=== PATIENT | female | born 1970 | race Caucasian/White ===

== ENCOUNTER 2019-07-08 06:02 | Emergency (ER) | payer OTHER ==
[~2019-07-08] VITALS: Ht 165.1 cm; Wt 82.1 kg
--- OUTSIDE RECORDS SUMMARY | 2019-07-08 06:04 | XMS REPORT ---
Author Author [facility] Address Unknown Phone Unavailable Care Team Providers Care Senior Data Quality Analyst Name Role Phone Unavailable Unavailable Payers Payer Name Policy Type Policy Number Effective Date Expiration Date Problems This patient has no known problems. Allergies, Adverse Reactions, Alerts Allergy Name Allergy Type Status Severity Reaction(s) Onset Date Inactive Date Treating Clinician Comments SHRIMP DA Active [place] 2012-10-21 00:00:00 Medications This patient has no known medications. Results Test Description Test Time Test Comments Text Results Atomic Results Result Comments - XR IVP W OR W/O OLE 2019-04-11 09:20:00 FAX: Aly Catherine DO [phone] Cook: St: [facility] FAX: Asim Rondon Jr [phone] Name: PATO PURI [facility] : 1970 Age/S: 48/F [address] [place] [address] Unit #: [id number] Loc: [place] [address] Phys: Asim Severino Jr, MD Acct: [id number] Dis Date: Status: REG CLI PHONE #: [phone] Exam Date: 04/11/2019 09 FAX #: [phone] Reason: UNSPEC URINARY INCONTINENCE EXAMS: CPT CODE: [id number] XR IVP W OR W/O OLE 77819 CLINICAL HISTORY: Urinary incontinence. COMPARISON: Computed tomography performed on November 01, 2012. Preliminary creative recruiter film of the abdomen demonstrates no evidence of small or large bowel obstruction. Surgical clips are present in the pelvis. Calcific densities in pelvis thought to represent phleboliths are identified. Following injection of contrast material, there is prompt visualization of both kidneys which appear normal in size shape and position. No evidence of renal mass is identified. No evidence of hydronephrosis is seen on either side. Delayed filling of central calyces on the left side is attributed to renal sinus fat. Both ureters appear normal without evidence of obstruction. Urinary bladder demonstrates no filling defect. Post void image demonstrates adequate drainage of collecting systems bilaterally and no significant residual contrast in bladder. IMPRESSION: 1. No evidence of renal mass or calculus. 2. No evidence of obstructive uropathy. 3. No significant residual contrast in the urinary bladder. at 0920 Reported and signed by: Boom Goyal M.D. CC: Aly Avalos DO; Asim Severino Jr, MD Technologist: RT Andry(Nico) Trnscrd Date/Time/By: 04/11/2019 (0753) : By: Lisa Vegas Print D/T: S: 04/11/2019 (1739) PAGE 1 Signed Report
--- NOTE | 2019-07-08 06:40 | NUR ---
Patient brought back into triage for ED MD assessment, bedside report completed with ESA Clemons; Pt transferrred to ED 8.
[2019-07-08] MEDS ORDERED: MORPHINE SULFATE 2 MG/ML SYR 1ML IV STA (06:44)
[2019-07-08] MEDS ORDERED: ONDANSETRON HCL INJ 2MG/ML 2ML 2 MG/ML VIAL IV STA (06:44)
[2019-07-08] MEDS ORDERED: PANTOPRAZOLE 40 MG 10ML VIAL IV STA (06:44)
[2019-07-08 07:02] LABS: BASOPHILS # (AUTO) 0.1 (0.0-0.1); EOSINOPHILS # (AUTO) 0.3 (0.0-0.4); EOSINOPHILS % 3.9 % (0.0-6.0); HEMATOCRIT 40.8 % (34.2-44.1); HEMOGLOBIN 13.5 g/dL (12.0-16.0); LYMPHOCYTES # (AUTO) 1.4 (1.0-3.2); LYMPHOCYTES % 19.1 % (18.0-39.1); MEAN CORPUSCULAR HEMOGLOBIN 31.5 pg (28-32); MEAN CORPUSCULAR HGB CONC 33.1 g/dL (31-35); MEAN CORPUSCULAR VOLUME 95.1 fL (81-99); MONOCYTES # (AUTO) 0.4 (0.2-0.8); MONOCYTES % 5.9 % (4.4-11.3); NEUTROPHILS # (AUTO) 5.1 (2.1-6.9); NEUTROPHILS % 69.8 % (38.7-80.0); PLATELET COUNT 321 x10e3/uL (140-360); RED BLOOD COUNT 4.29 x10e6/uL (3.6-5.1); RED CELL DISTRIBUTION WIDTH 13.6 % (11.7-14.4)
[2019-07-08 07:08] LABS: BILIRUBIN,URINE NEGATIVE (NEGATIVE); CLARITY,URINE CLEAR (CLEAR); COLOR,URINE YELLOW (YELLOW); KETONES,URINE NEGATIVE (NEGATIVE); LEUKOCYTE ESTERASE ,URINE NEGATIVE (NEGATIVE); NITRITE,URINE NEGATIVE (NEGATIVE); PROTEIN,URINE DIPSTICK NEGATIVE (NEGATIVE); URINE UROBILINOGEN 0.2 mg/dL (0.2 - 1)
[2019-07-08 07:21] LABS: ALANINE AMINOTRANSFERASE 23 IU/L (0-55); ALBUMIN 3.6 g/dL (3.5-5.0); ALBUMIN/GLOBULIN RATIO 1.2 (0.8-2.0); ALKALINE PHOSPHATASE 110 IU/L (40-150); AMYLASE 35 U/L (25-125); ANION GAP 11.8 mmol/L (8-16); BLOOD UREA NITROGEN 14 mg/dL (7-26); BUN/CREATININE RATIO 16 (6-25); CALCIUM 8.8 mg/dL (8.4-10.2); CARBON DIOXIDE 25 mmol/L (22-29); CHLORIDE 109 mmol/L (98-107); CREATINE KINASE 51 IU/L (29-168); CREATININE, SERUM 0.86 mg/dL (0.57-1.11); EST GLOMERULAR FILTRATION RATE > 60 ML/MIN (60-); GLUCOSE 95 mg/dL (74-118); LIPASE 41 U/L (8-78); POTASSIUM 3.8 mmol/L (3.5-5.1); SODIUM 142 mmol/L (136-145)
[2019-07-08 07:23] LABS: BACTERIA,URINE FEW /HPF; EPITHELIAL CELLS,URINE FEW /LPF; RBC,URINE 0-5 /HPF (0-5); WBC,URINE (MAN) 0-5 /HPF (0-5)
--- NOTE | 2019-07-08 07:58 | NUR ---
COMMERCIAL ARTIST LETTERING AT BEDSIDE
--- NOTE | 2019-07-08 08:51 | Diagnostic Imaging Report ---
EXAM: Gallbladder Ultrasound INDICATION: ruq pain COMPARISON: None. TECHNIQUE: Transverse and longitudinal images of the gallbladder were obtained. FINDINGS: Liver: Limited Gallbladder: Stones/Sludge: There are gallstones. Wall: 0.2 cm Appearance: No pericholecystic fluid or hydrops. Sonographic Handley's Sign: Negative Bile Ducts: Intrahepatic Ducts: No dilatation Extrahepatic Ducts: Common bile duct measures 0.4 cm, no dilatation Free Fluid: No ascites or pleural effusion IMPRESSION: Cholelithiasis without sonographic evidence of acute cholecystitis. Signed by: Saulo Wong MD on 07/08/2019 8:47 AM
== END 2019-07-08 09:24 | disposition home or self-care (01) ==
LOC: ER 06:02
DX: R10.11 Right upper quadrant pain (principal); R11.0 Nausea; M54.5 Low back pain; K80.20 Calculus of gallbladder without cholecystitis without obstruction; F90.9 Attention-deficit hyperactivity disorder, unspecified type; Z85.038 Personal history of other malignant neoplasm of large intestine
CPT/HCPCS: 36415; 76705; 80053; 81001; 82150; 82550; 82553; 83690; 84484; 85025; 93005; 99284; C9113; J2270; J2405

== ENCOUNTER 2020-10-11 12:21 | Inpatient (IN) | payer OTHER ==
[~2020-10-11] VITALS: Ht 165.1 cm; Wt 82.1 kg
[2020-10-11] MEDS ORDERED: SODIUM CHLORIDE 0.9% 1000ML 1,000 ML IV STA (12:58)
[2020-10-11] MEDS ORDERED: ONDANSETRON HCL INJ 2MG/ML 2ML 2 MG/ML VIAL IV STA (12:58)
[2020-10-11] MEDS ORDERED: KETOROLAC TROMETHAMINE 30 MG/ML VIAL IV STA (12:58)
[2020-10-11 13:41] LABS: BASOPHILS % 0.4 % (0.0-1.0); EOSINOPHILS # (AUTO) 0.2 (0.0-0.4); EOSINOPHILS % 2.2 % (0.0-6.0); HEMATOCRIT 44.2 % (34.2-44.1); HEMOGLOBIN 14.4 g/dL (12.0-16.0); LYMPHOCYTES # (AUTO) 0.9 (1.0-3.2); LYMPHOCYTES % 13.1 % (18.0-39.1); MEAN CORPUSCULAR HEMOGLOBIN 30.5 pg (28-32); MEAN CORPUSCULAR HGB CONC 32.6 g/dL (31-35); MEAN CORPUSCULAR VOLUME 93.6 fL (81-99); MONOCYTES # (AUTO) 0.5 (0.2-0.8); MONOCYTES % 7.5 % (4.4-11.3); NEUTROPHILS # (AUTO) 5.5 (2.1-6.9); NEUTROPHILS % 76.5 % (38.7-80.0); PLATELET COUNT 269 x10e3/uL (140-360); RED BLOOD COUNT 4.72 x10e6/uL (3.6-5.1); RED CELL DISTRIBUTION WIDTH 14.1 % (11.7-14.4)
[2020-10-11 13:53] LABS: ALBUMIN 3.9 g/dL (3.5-5.0); ALBUMIN/GLOBULIN RATIO 1.1 (0.8-2.0); ANION GAP 19.9 mmol/L (8-16); CALCIUM 9.4 mg/dL (8.4-10.2); CREATININE, SERUM 0.83 mg/dL (0.57-1.11); POTASSIUM 3.9 mmol/L (3.5-5.1)
[2020-10-11] MEDS ORDERED: IOPAMIDOL 370 MG/ML 200 ML INFUS..BTL INJ ONE (15:08)
[2020-10-11] MEDS ORDERED: SODIUM CHLORIDE 0.9% 50ML 50 ML ONE (15:08)
[2020-10-11 15:56] LABS: CLARITY,URINE SL CLOUDY (CLEAR); COLOR,URINE STRAW (YELLOW); KETONES,URINE 1+ (NEGATIVE); LEUKOCYTE ESTERASE ,URINE SMALL (NEGATIVE); NITRITE,URINE NEGATIVE (NEGATIVE); PROTEIN,URINE DIPSTICK NEGATIVE (NEGATIVE); URINE UROBILINOGEN 0.2 mg/dL (0.2 - 1)
[2020-10-11 16:09] LABS: BACTERIA,URINE FEW /HPF; EPITHELIAL CELLS,URINE MODERATE /LPF; RBC,URINE 0-5 /HPF (0-5); WBC,URINE (MAN) 0-5 /HPF (0-5)
[2020-10-11 16:10] LABS: AMORPHOUS SEDIMENT,URINE MODERATE (FEW); MUCUS,URINE FEW (RARE)
[2020-10-11] MEDS: SODIUM CHLORIDE 0.9% 1000ML 1,000 ML IV SCH (17:15)
[2020-10-11] MEDS ORDERED: ALREX5 ML (17:18)
[2020-10-11] MEDS ORDERED: DICYCLOMINE HCL20 MG (17:18)
[2020-10-11] MEDS ORDERED: RESTASIS1 EACH (17:18)
[2020-10-11] MEDS ORDERED: DEXTROAMP-AMPHE30 MG (17:18)
[2020-10-11] MEDS ORDERED: PANTOPRAZOLE SO20 MG (17:18)
[2020-10-11] MEDS ORDERED: MORPHINE SULFATE INJ 4 MG/ML INJ 1ML IV PRN (17:45)
[2020-10-11 21:59] VITALS: BP 145/81
[2020-10-11 22:10] VITALS: BP_SYST 145; BP_SYST 148; BP_DIAS 81
[2020-10-11 23:28] VITALS: BP 125/82
[2020-10-11] MEDS: ONDANSETRON HCL INJ 2MG/ML 2ML 2 MG/ML VIAL IV PRN (23:48)
[2020-10-11] MEDS: MORPHINE SULFATE INJ 4 MG/ML INJ 1ML IV PRN (23:48)
[2020-10-12] MEDS: SODIUM CHLORIDE 0.9% 1000ML 1,000 ML IV SCH ×3 (01:28→19:10)
[2020-10-12 05:35] VITALS: BP 113/80
[2020-10-12] MEDS: ONDANSETRON HCL INJ 2MG/ML 2ML 2 MG/ML VIAL IV PRN (07:30)
[2020-10-12] MEDS: MORPHINE SULFATE INJ 4 MG/ML INJ 1ML IV PRN (07:30)
[2020-10-12 07:50] VITALS: BP 119/55
[2020-10-12 08:10] VITALS: BP 105/75
[2020-10-12] MEDS: ACETAMINOPHEN 1000 MG/100 ML IV PRN ×2 (11:33→20:22)
[2020-10-12 11:44] VITALS: BP 133/79
[2020-10-12 15:42] VITALS: BP 130/74
[2020-10-12 20:00] VITALS: BP 118/64
[2020-10-13] VITALS (7 sets, daily range): BP systolic 105–151; BP diastolic 64–82
[2020-10-13] MEDS: SODIUM CHLORIDE 0.9% 1000ML 1,000 ML IV SCH ×4 (01:15→22:59)
[2020-10-13 06:13] LABS: BASOPHILS % 0.8 % (0.0-1.0); EOSINOPHILS # (AUTO) 0.1 (0.0-0.4); EOSINOPHILS % 1.7 % (0.0-6.0); HEMATOCRIT 36.8 % (34.2-44.1); HEMOGLOBIN 11.8 g/dL (12.0-16.0); LYMPHOCYTES # (AUTO) 1.1 (1.0-3.2); LYMPHOCYTES % 20.2 % (18.0-39.1); MEAN CORPUSCULAR HEMOGLOBIN 30.8 pg (28-32); MEAN CORPUSCULAR HGB CONC 32.1 g/dL (31-35); MEAN CORPUSCULAR VOLUME 96.1 fL (81-99); MONOCYTES # (AUTO) 0.4 (0.2-0.8); NEUTROPHILS # (AUTO) 3.7 (2.1-6.9); NEUTROPHILS % 70.1 % (38.7-80.0); PLATELET COUNT 242 x10e3/uL (140-360); RED BLOOD COUNT 3.83 x10e6/uL (3.6-5.1); RED CELL DISTRIBUTION WIDTH 13.5 % (11.7-14.4)
[2020-10-13 06:37] LABS: ALBUMIN/GLOBULIN RATIO 1.1 (0.8-2.0); ANION GAP 16.5 mmol/L (8-16); CALCIUM 7.7 mg/dL (8.4-10.2); CREATININE, SERUM 0.6 mg/dL (0.57-1.11); POTASSIUM 3.5 mmol/L (3.5-5.1)
[2020-10-14] VITALS: BP 119/73
[2020-10-14] MEDS: SODIUM CHLORIDE 0.9% 1000ML 1,000 ML IV SCH ×2 (01:15→05:48)
[2020-10-14 04:00] VITALS: BP 113/77
[2020-10-14 07:41] VITALS: BP 113/77
[2020-10-14 07:45] VITALS: BP 131/80
[2020-10-14 11:55] VITALS: BP 139/76
== END 2020-10-14 14:21 | disposition home or self-care (01) | DRG 390 ==
LOC: ER 12:50 → ERHOLD 17:39 → MED/SURG 21:56
DX: K56.601 Complete intestinal obstruction, unspecified as to cause (principal); K56.600 Partial intestinal obstruction, unspecified as to cause; K43.9 Ventral hernia without obstruction or gangrene; F90.9 Attention-deficit hyperactivity disorder, unspecified type; Z85.038 Personal history of other malignant neoplasm of large intestine
CPT/HCPCS: 36415; 74022; 74177; 80053; 81001; 83690; 84702; 85025; 96365; 99284; J1885; J2270; J2405; J7030; Q9967; U0002

== ENCOUNTER → 2020-11-01 | Outpatient (CLI) | payer OTHER ==
[~2020-11-01] MED LIST: ALREX5 ML; DEXTROAMP-AMPHE30 MG; DICYCLOMINE HCL20 MG; IOPAMIDOL 370 MG/ML 200 ML INFUS..BTL INJ ONE; PANTOPRAZOLE SO20 MG; RESTASIS1 EACH; SODIUM CHLORIDE 0.9% 50ML 50 ML ONE
== END ==
LOC: CT 14:54
PROVIDERS: ATTEND Surgery
DX: R91.8 Other nonspecific abnormal finding of lung field (principal)
CPT/HCPCS: 71260; Q9967

== ENCOUNTER → 2020-12-03 | Outpatient (CLI) | payer OTHER ==
[~2020-12-03] MED LIST changes: +FENTANYL CITRATE/PF 100MCG/2 ML INJ ONE; -IOPAMIDOL 370 MG/ML 200 ML INFUS..BTL INJ ONE; +MIDAZOLAM HCL 2 MG/2 ML VIAL ONE; -SODIUM CHLORIDE 0.9% 50ML 50 ML ONE
[2020-12-03 08:26] LABS: HEMOGLOBIN 12.8 g/dL (12.0-16.0)
[2020-12-03 08:43] LABS: INR 0.87
[2020-12-03 08:44] LABS: PARTIAL THROMBOPLASTIN TIME 27.3 seconds (23.8-35.5)
== END ==
LOC: CT 07:56
PROVIDERS: ATTEND Surgery
DX: R91.8 Other nonspecific abnormal finding of lung field (principal)
CPT/HCPCS: 32408; 36415; 71045; 77012; 85014; 85049; 85610; 85730; 88305; 88342; J2250; J3010; U0002